=== PATIENT | male | born 1995 | race Caucasian/White ===

== ENCOUNTER 2019-11-16 20:19 | Emergency (ER) | payer SELFPAY ==
[2019-11-16 20:32] VITALS: BP 113/77; PULSE 89; TEMP 98.7; BMI 24.3
[2019-11-16] MEDS ORDERED: SODIUM CHLORIDE 1,000 ML IV ONE (20:34)
[2019-11-16] MEDS ORDERED: PIPERACILLIN/TAZOB 3.375 GM 3.375 GM in DEXTROSE 5%-WATER - 50 ML IVPB ONE (20:34)
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
== END 2019-11-16 20:55 | disposition left against medical advice (07) ==
LOC: JER 20:19
PROC: 3E033GC Introduction of Other Therapeutic Substance into Peripheral Vein, Percutaneous Approach (ICD-10-PCS; principal; 2019-11-16)
DX: L03.116 Cellulitis of left lower limb (principal)
CPT/HCPCS: 99284-25